=== PATIENT | female | born 1955 | race American Indian/Alaskan Native ===

== ENCOUNTER 2022-07-02 19:13 | Inpatient (IN) | payer MEDICARE ==
--- NOTE | 2022-07-02 22:22 | Emergency Department Report ---
- General Stated complaint: BRADYCARDIA/LETHARGY Time Seen by Provider: 07/02/22 22:11 - History of Present Illness Initial comments: 67-year female with past medical history of pseudotumor cerebri, thyroid cancer (status post thyroidectomy), stomach ulcers, GERD, CVA x3 with residual deficits status post tPA November 2021 presents to the hospital with increased dizziness. Patient states she woke up this morning "not feeling right". Patient took her oxycodone but continued to have generalized weakness requiring use of a walker instead of her cane. Around 6:20 PM she felt "dizzy" and unsteady and was falling to the right side therefore she called EMS at this time. Patient complains of chronic left shoulder and right arm pain which is unchanged. She has chronic right arm, right leg weakness, mild slurred speech, and memory problems which is unchanged. Patient takes Diamox for pseudotumor cerebri and does not currently undergo spinal fluid drainage. Patient also states she has had chronic nausea and vomiting for several months and recently had a stomach MRI as part of her outpatient work-up. Patient is typically treated at [facility] Her neurologist is Dr. Zuhair Jonas affiliated with [facility] Her pain management doctor Dr. Fox Her virtual classroom manager Dr. Farrell is affiliated with [facility] - Related Data Home Medications Medication Instructions Recorded Confirmed Last Taken Dexilant 60 mg PO DAILY 07/31/15 08/01/15 07/31/15 Diamox TAB 500 mg PO DAILY 07/31/15 08/01/15 08/01/15 Synthroid 88 mcg PO DAILY 07/31/15 08/01/15 07/31/15 Valium 2 mg PO DAILY 07/31/15 08/01/15 07/31/15 Vitamin B-100 Complex 1 tab PO DAILY 07/31/15 08/01/15 07/31/15 chlorproMAZINE 100 mg PO DAILY 07/31/15 08/01/15 07/31/15 Previous Rx's Medication Instructions Recorded Last Taken Type oxyCODONE /ACETAMINOPHEN [Percocet 1 tab PO Q6HR PRN #20 tablet 03/07/14 07/31/15 Rx 5/325 mg] Escitalopram Oxalate [Lexapro] 20 mg PO QDAY #30 tablet 07/31/14 07/31/15 Rx Sucralfate [Carafate] 1 gm PO Q6HR #600 ml 08/01/15 Unknown Rx Allergies Allergy/AdvReac Type Severity Reaction Status Date / Time sulfamethoxazole AdvReac Hives Verified 07/31/15 10:15 [From Bactrim] trimethoprim [From Bactrim] AdvReac Hives Verified 07/31/15 10:15 ED Review of Systems ROS: Stated complaint: BRADYCARDIA/LETHARGY Other details as noted in HPI ED Past Medical Hx - Past Medical History Hx CVA: Yes (Multiple strokes with residual deficit,) Hx GERD: Yes Hx Asthma: No Hx COPD: No Hx HIV: No Additional medical history: Fibromyalgia, Pseudo tumor cerebri, Thyroid CA, Stomach Ulcers - Surgical History Hx Appendectomy: Yes Hx Breast Surgery: Yes (RECONSTRUCTION RT BREAST;RT BREAST BX) Additional Surgical History: Leg Surgery x 3, Right Foot Surgery, Rt elbow surgery, thyroidectomy. - Social History Smoking Status: Former Smoker - Medications Home Medications: Home Medications Medication Instructions Recorded Confirmed Last Taken Type oxyCODONE /ACETAMINOPHEN [Percocet 1 tab PO Q6HR PRN #20 tablet 03/07/1408/0107/31/15 Rx 5/325 mg] Escitalopram Oxalate [Lexapro] 20 mg PO QDAY #30 tablet 07/31/14 08/01/15 07/31/15 Rx Dexilant 60 mg PO DAILY 07/31/15 08/01/15 07/31/15 History Diamox TAB 500 mg PO DAILY 07/31/15 08/01/15 08/01/15 History Synthroid 88 mcg PO DAILY 07/31/15 08/01/15 07/31/15 History Valium 2 mg PO DAILY 07/31/15 08/01/15 07/31/15 History Vitamin B-100 Complex 1 tab PO DAILY 07/31/15 08/01/15 07/31/15 History chlorproMAZINE 100 mg PO DAILY 07/31/15 08/01/15 07/31/15 History Sucralfate [Carafate] 1 gm PO Q6HR #600 ml 08/01/15 Unknown Rx - Assessment Assessment Interval: Baseline - Level of Consciousness 1a. Level of Consciousness: alert/keenly responsive - LOC Questions 1b. LOC Questions: answers both correctly - LOC Command 1c. LOC Commands: performs tasks correctly - Best Gaze 2. Best Gaze: normal - Visual 3. Visual: no visual loss - Facial Palsy 4. Facial Palsy: normal symmetrical movement - Motor Arm 5a. Motor Arm Left: no drift 5b. Motor Arm Right: drift - Motor Leg 6a. Motor Leg Left: no drift 6b. Motor Leg Right: drift - Limb Ataxia 7. Limb Ataxia: absent - Sensory 8. Sensory: normal - Best Language 9. Best Language: no aphasia - Dysarthria 10. Dysarthria: mild/moderate dysarthria - Extinction and Inattention 11. Extinction/Inattention: no abnormality - Scoring Total Score: 3 Stroke Severity: Minor Stroke ED Course Vital Signs 07/02/22 07/02/22 07/02/22 22:32 22:34 22:47 Temperature 97.8 F Pulse Rate 58 L 54 L Respiratory 18 11 L Rate Blood Pressure 113/55 Blood Pressure 113/55 [Left] O2 Sat by Pulse 97 89 Oximetry 07/02/22 07/02/22 07/02/22 23:01 23:15 23:31 Temperature Pulse Rate 68 57 L 56 L Respiratory 14 11 L Rate Blood Pressure 113/55 113/55 113/55 Blood Pressure [Left] O2 Sat by Pulse 95 100 97 Oximetry 07/02/22 07/03/22 07/03/22 23:45 00:01 00:15 Temperature Pulse Rate 47 L 52 L 53 L Respiratory 10 L 10 L Rate Blood Pressure 113/55 113/55 113/55 Blood Pressure [Left] O2 Sat by Pulse 98 98 97 Oximetry 07/03/22 07/03/22 00:31 01:24 Temperature Pulse Rate 56 L Respiratory Rate Blood Pressure 109/70 Blood Pressure [Left] O2 Sat by Pulse 98 97 Oximetry - Consultations Consultation #1: 07/02/22 22:22 Consultation with neurologist who will evaluate patient 07/03/22 00:49 Case to be discussed with neurologist. Alternative neurologist covering. Informed we are unable to obtain appropriate access with CT angiogram. Recommends MRA in addition to MRI previously recommended ED Medical Decision Making - Lab Data Result diagrams: 07/02/22 22:28 07/02/22 22:28 Lab Results 07/02/22 07/02/22 07/02/22 Range/Units 22:28 22:28 22:28 WBC 7.1 (4.5-11.0) K/mm3 RBC 4.37 (3.65-5.03) M/mm3 Hgb 12.3 (10.1-14.3) gm/dl Hct 36.5 (30.3-42.9) % MCV 83 (79-97) fl MCH 28 (28-32) pg MCHC 34 (30-34) % RDW 15.5 H (13.2-15.2) % Plt Count 223 (140-440) K/mm3 Lymph % (Auto) 29.7 (13.4-35.0) % [place] % (Auto) 7.0 (0.0-7.3) % Eos % (Auto) 1.1 (0.0-4.3) % Baso % (Auto) 0.8 (0.0-1.8) % Lymph # (Auto) 2.1 (1.2-5.4) K/mm3 [place] # (Auto) 0.5 (0.0-0.8) K/mm3 Eos # (Auto) 0.1 (0.0-0.4) K/mm3 Baso # (Auto) 0.1 (0.0-0.1) K/mm3 Seg Neutrophils % 61.4 (40.0-70.0) % Seg Neutrophils # 4.4 (1.8-7.7) K/mm3 PT 14.8 (12.2-14.9) Sec. INR 1.02 (0.87-1.13) APTT 28.9 (24.2-36.6) Sec. Thrombin Time 16.6 (15.1-19.6) Sec. Sodium 142 (137-145) mmol/L Potassium 3.6 (3.6-5.0) mmol/L Chloride 104.0 (98-107) mmol/L Carbon Dioxide 26 (22-30) mmol/L Anion Gap 16 mmol/L BUN 12 (7-17) mg/dL Creatinine 1.0 (0.6-1.2) mg/dL Estimated GFR > 60 ml/min BUN/Creatinine Ratio 12 % Glucose 93 (65-100) mg/dL Calcium 9.3 (8.4-10.2) mg/dL Total Bilirubin 0.80 (0.1-1.2) mg/dL AST 137 H (5-40) units/L ALT 86 H (7-56) units/L Alkaline Phosphatase 328 H (35-129) units/L Total Creatine Kinase 112 (30-135) units/L CK-MB (CK-2) 1.3 (0.0-4.0) ng/mL CK-MB (CK-2) Rel Index 1.1 (0-4) Troponin T < 0.010 (0.00-0.029) ng/mL Total Protein 6.9 (6.3-8.2) g/dL Albumin 3.8 L (3.9-5) g/dL Albumin/Globulin Ratio 1.2 % TSH (0.270-4.200) mlU/mL Free T4 (0.76-1.46) ng/dL Urine Color (Yellow) Urine Turbidity (Clear) Urine pH (5.0-7.0) Ur Specific [place] (1.003-1.030) Urine Protein (Negative) mg/dL Urine Glucose (UA) (Negative) mg/dL Urine Ketones (Negative) mg/dL Urine Blood (Negative) Urine Nitrite (Negative) Urine Bilirubin (Negative) Urine Urobilinogen (<2.0) mg/dL Ur Leukocyte Esterase (Negative) Urine WBC (Auto) (0.0-6.0) /HPF Urine RBC (Auto) (0.0-6.0) /HPF U Epithel Cells (Auto) (0-13.0) /HPF 07/02/22 07/03/22 Range/Units 22:28 00:31 WBC (4.5-11.0) K/mm3 RBC (3.65-5.03) M/mm3 Hgb (10.1-14.3) gm/dl Hct (30.3-42.9) % MCV (79-97) fl MCH (28-32) pg MCHC (30-34) % RDW (13.2-15.2) % Plt Count (140-440) K/mm3 Lymph % (Auto) (13.4-35.0) % [place] % (Auto) (0.0-7.3) % Eos % (Auto) (0.0-4.3) % Baso % (Auto) (0.0-1.8) % Lymph # (Auto) (1.2-5.4) K/mm3 [place] # (Auto) (0.0-0.8) K/mm3 Eos # (Auto) (0.0-0.4) K/mm3 Baso # (Auto) (0.0-0.1) K/mm3 Seg Neutrophils % (40.0-70.0) % Seg Neutrophils # (1.8-7.7) K/mm3 PT (12.2-14.9) Sec. INR (0.87-1.13) APTT (24.2-36.6) Sec. Thrombin Time (15.1-19.6) Sec. Sodium (137-145) mmol/L Potassium (3.6-5.0) mmol/L Chloride (98-107) mmol/L Carbon Dioxide (22-30) mmol/L Anion Gap mmol/L BUN (7-17) mg/dL Creatinine (0.6-1.2) mg/dL Estimated GFR ml/min BUN/Creatinine Ratio % Glucose (65-100) mg/dL Calcium (8.4-10.2) mg/dL Total Bilirubin (0.1-1.2) mg/dL AST (5-40) units/L ALT (7-56) units/L Alkaline Phosphatase (35-129) units/L Total Creatine Kinase (30-135) units/L CK-MB (CK-2) (0.0-4.0) ng/mL CK-MB (CK-2) Rel Index (0-4) Troponin T (0.00-0.029) ng/mL Total Protein (6.3-8.2) g/dL Albumin (3.9-5) g/dL Albumin/Globulin Ratio % TSH 0.178 L (0.270-4.200) mlU/mL Free T4 1.33 (0.76-1.46) ng/dL Urine Color Colorless (Yellow) Urine Turbidity Clear (Clear) Urine pH 7.0 (5.0-7.0) Ur Specific [place] 1.000 L (1.003-1.030) Urine Protein <15 mg/dl (Negative) mg/dL Urine Glucose (UA) Negative (Negative) mg/dL Urine Ketones Negative (Negative) mg/dL Urine Blood Negative (Negative) Urine Nitrite Negative (Negative) Urine Bilirubin Negative (Negative) Urine Urobilinogen 0.2 (<2.0) mg/dL Ur Leukocyte Esterase Negative (Negative) Urine WBC (Auto) 5.0 (0.0-6.0) /HPF Urine RBC (Auto) 1.0 (0.0-6.0) /HPF U Epithel Cells (Auto) 1.0 (0-13.0) /HPF - EKG Data -: EKG Interpreted by Nv EKG shows normal: sinus rhythm Rate: bradycardia (55) - Radiology Data Radiology results: report reviewed CT HEAD WITHOUT CONTRAST INDICATION / CLINICAL INFORMATION: Stroke symptoms. TECHNIQUE: All CT scans at this location are performed using CT dose reduction for ALARA by means of automated exposure control. COMPARISON: None available. FINDINGS: BRAIN PARENCHYMA: No acute intracranial hemorrhage. No evidence of recent infarct. No mass effect or midline shift. Chronic small vessel ischemic changes. Small area of encephalomalacia involving the right frontal lobe, likely related to remote infarct. Empty sella turcica. VENTRICULAR SYSTEM/EXTRA-AXIAL SPACES: Age-related cerebral atrophy. No extra- axial fluid collection. ORBITS: Normal as visualized. SKELETAL SYSTEM/SOFT TISSUES: Normal bones and soft tissues. PARANASAL SINUSES/MASTOID AIR CELLS: No significant abnormality. ADDITIONAL FINDINGS: None. IMPRESSION: No acute intracranial abnormality. - Medical Decision Making 57-year-old female presents to the hospital with unsteady gait and dizziness. Patient has history of multiple strokes with residual deficit and also takes medications which could be contributing to her current symptoms. ED work-up fairly unremarkable. Unable to obtain CT angiogram head and neck due to lack of appropriate IV access. MRI and MRA recommended by neurologist. Hospitalist to admit Critical Care Time: No Critical care attestation.: If time is entered above; I have spent that time in minutes in the direct care of this critically ill patient, excluding procedure time. ED Disposition Clinical Impression: Dizziness, Unsteady gait when walking, History of CVA with residual deficit, Low TSH level, Pseudotumor cerebri Disposition: 09 ADMITTED INPATIENT Is pt being admited?: Yes Condition: Stable
--- NOTE | 2022-07-02 22:39 | Cat Scan Report ---
CT HEAD WITHOUT CONTRAST INDICATION / CLINICAL INFORMATION: Stroke symptoms. TECHNIQUE: All CT scans at this location are performed using CT dose reduction for ALARA by means of automated exposure control. COMPARISON: None available. FINDINGS: BRAIN PARENCHYMA: No acute intracranial hemorrhage. No evidence of recent infarct. No mass effect or midline shift. Chronic small vessel ischemic changes. Small area of encephalomalacia involving the ri ght frontal lobe, likely related to remote infarct. Empty sella turcica. VENTRICULAR SYSTEM/EXTRA-AXIAL SPACES: Age-related cerebral atrophy. No extra-axial fluid collection. ORBITS: Normal as visualized. SKELETAL SYSTEM/SOFT TISSUES: Normal bones and soft tissues. PARANASAL SINUSES/MASTOID AIR CELLS: No significant abnormality. ADDITIONAL FINDINGS: None. IMPRESSION: No acute intracranial abnormality. Signer Name: Rom King MD Signed: 07/02/2022 10:35 PM Workstation Name: [id number]
[2022-07-02 22:46] LABS: Basophils # (Auto) 0.1 K/mm3 (0.0-0.1); Basophils % (Auto) 0.8 % (0.0-1.8); Eosinophils # (Auto) 0.1 K/mm3 (0.0-0.4); Eosinophils % (Auto) 1.1 % (0.0-4.3); Hematocrit 36.5 % (30.3-42.9); Hemoglobin 12.3 gm/dl (10.1-14.3); Lymphocytes # (Auto) 2.1 K/mm3 (1.2-5.4); Lymphocytes % (Auto) 29.7 % (13.4-35.0); Mean Corpuscular HGB Conc 34 % (30-34); Mean Corpuscular Volume 83 fl (79-97); Monocytes # (Auto) 0.5 K/mm3 (0.0-0.8); Platelet Count 223 K/mm3 (140-440); Red Blood Count 4.37 M/mm3 (3.65-5.03); Red Cell Distribution Width 15.5 % (13.2-15.2)
--- NOTE | 2022-07-02 23:00 | Emergency Department Report ---
Blank Doc - Documentation Documentation: [facility] Consult Note # Demographics Consult Type: Acute Stroke Level 2 (4.5-24 hrs) Patient Location: Emergency Room First Name: Cristina Last Name: Heri Date of : 1955 Age: 67 Gender: Female Facility: [facility] Time of Initial Page (Eastern Time): 07/02/2022, 22:14 Time of Return Call (Eastern Time): 07/02/2022, 22:14 # HPI History: 67 year old female with pseudotumor cerebri presents with symptoms of dizziness that started on waking up. PT also has hx of old stroke with right sided deficits. Patient states she was in [place] when her episode got worse, but didnt feel good while waking up. Last Known Normal: since waking up # Scores Level of Consciousness 1a: [0] = Alert; keenly responsive LOC Questions 1b: [0] = Answers both questions correctly LOC Commands 1c: [0] = Performs both tasks correctly Best Gaze 2: [0] = Normal Visual 3: [0] = No visual loss Facial Palsy 4: [0] = Normal symmetrical movements Motor Arm Left 5a: [0] = No drift Motor Arm Right 5b: [1] = Drift Motor Leg Left 6a: [1] = Drift Motor Leg Right 6b: [0] = No drift Limb Ataxia 7: [0] = Absent Sensory 8: [1] = [id number]-[id number] sensory loss Best Language 9: [0] = No aphasia Dysarthria 10: [0] = Normal Extinction and Inattention 11: [0] = No abnormality NIHSS Total: 3 # PMH-FH-SH Past Medical History: hypertension Social History: non-smoker non-drinker no drugs lives with family Medications: anticoagulant # Data Head CT: no bleed per radiologist read # Assessment Impression: given hx of multiple strokes in the past, and current on eliquis, cannot fully rule out stroke though symptoms less likely to be related to that. More likely to be metabolic vs. acute drop in BP due to 2 new BP medications. # Plan Thrombolytic/Intervention: NOT IV Thrombolysis or IA Intervention candidate Thrombolytic Exclusion: > 4.5 hours Intraarterial Exclusion: cta pending Blood Pressure Management: IV fluid bolus Target Blood Pressure: SBP < 140 SBP > 110 DBP < 105 Labs: CBC comprehensive metabolic panel hemoglobin A1c lipid panel troponin TSH urine drug screen ua Imaging: (urgency: STAT): CT Head without contrast CT Angiogram Head and CT Angiogram Neck Imaging: (urgency: routine): MRI Brain without contrast Diagnostic Test: echo with bubble study Medication: continue home meds Other: If patient has any neurological deterioration please call me back immediately permissive hypertension telemetry monitoring would not pursue stroke work-up if MRI is negative I have discussed my recommendations with the referring provider
[2022-07-02 23:03] LABS: INR 1.02 (0.87-1.13)
[2022-07-02 23:04] LABS: Partial Thromboplastin Time 28.9 Sec. (24.2-36.6); Thrombin Time 16.6 Sec. (15.1-19.6)
[2022-07-02 23:08] LABS: Creatine Kinase MB 1.3 ng/mL (0.0-4.0)
[2022-07-02 23:09] LABS: Alanine Aminotransferase 86 units/L (7-56); Albumin 3.8 g/dL (3.9-5); BUN/Creatinine Ratio 12; Blood Urea Nitrogen 12 mg/dL (7-17); Calcium 9.3 mg/dL (8.4-10.2); Hemolysis Index 4
[2022-07-02 23:19] LABS: Free T4 (Free Thyroxine) 1.33 ng/dL (0.76-1.46)
[2022-07-03 00:44] LABS: Bilirubin,Urine Negative (Negative); Blood,Urine Negative (Negative); Color,Urine Colorless (Yellow); Protein,Urine <15 mg/dL mg/dL (Negative); Urobilinogen,Urine 0.2 mg/dL (<2.0)
[2022-07-03 00:51] LABS: Amphetamine Screen,Urine PRESUMPTIVE NEGATIVE; Benzodiazepines Screen,Urine PRESUMPTIVE NEGATIVE; Cannabinoid Screen,Urine PRESUMPTIVE NEGATIVE; Cocaine Screen,Urine PRESUMPTIVE NEGATIVE; Methadone Screen,Urine PRESUMPTIVE NEGATIVE; Opiate Screen,Urine PRESUMPTIVE NEGATIVE
--- NOTE | 2022-07-03 00:52 | Consultation ---
History of Present Illness Consult date: 07/03/22 History of present illness: [facility] Consult Note # Demographics Consult Type: Follow-Up Phone Call Patient Location: Emergency Room First Name: Cristina Last Name: Heri Date of : 1955 Age: 67 Gender: Female Facility: [facility] Time of Initial Page (Eastern Time): 07/03/2022, 00:34 Time of Return Call (Eastern Time): 07/03/2022, 00:35 Phone Only Consult: Called ER Physician back as requested. It was reported that they could not obtain appropriate access for CTA & requested clarification. Reported dizziness, which was worse than her chronic baseline. Per documentation, NIHSS 3 with suspicion more for "metabolic vs. acute drop in BP due to 2 new BP medications," versus large-vessel occlusion. While CTA in the ER would be ideal, if unable to obtain vascular access for IV dye, MRA head & neck without gadolinium would be the next alternative. Would continue to monitor clinically, & additional recommendations as per the original consultation. # Plan Other: If patient has any neurological deterioration please call me back immediately I have discussed my recommendations with the referring provider Medications and Allergies Allergies Allergy/AdvReac Type Severity Reaction Status Date / Time sulfamethoxazole AdvReac Hives Verified 07/31/15 10:15 [From Bactrim] trimethoprim [From Bactrim] AdvReac Hives Verified 07/31/15 10:15 Home Medications Medication Instructions Recorded Confirmed Last Taken Type oxyCODONE /ACETAMINOPHEN [Percocet 1 tab PO Q6HR PRN #20 tablet 03/07/14 08/01/15 07/31/15 Rx 5/325 mg] Escitalopram Oxalate [Lexapro] 20 mg PO QDAY #30 tablet 07/31/14 08/01/15 07/31/15 Rx Dexilant 60 mg PO DAILY 07/31/15 08/01/15 07/31/15 History Diamox TAB 500 mg PO DAILY 07/31/15 08/01/15 08/01/15 History Synthroid 88 mcg PO DAILY 07/31/15 08/01/15 07/31/15 History Valium 2 mg PO DAILY 07/31/15 08/01/15 07/31/15 History Vitamin B-100 Complex 1 tab PO DAILY 07/31/15 08/01/15 07/31/15 History chlorproMAZINE 100 mg PO DAILY 07/31/15 08/01/15 07/31/15 History Sucralfate [Carafate] 1 gm PO Q6HR #600 ml 08/01/15 Unknown Rx Physical Examination - Vital Signs Vital Signs: Vital Signs Temp Pulse Resp BP Pulse Ox 97.8 F 58 L 18 113/55 97 07/02/22 22:32 07/02/22 22:32 07/02/22 22:32 07/02/22 22:32 07/02/22 22:32 Results - Laboratory Findings CBC and BMP: 07/02/22 22:28 07/02/22 22:28 Abnormal Lab Findings: Abnormal Labs 07/02/22 07/02/22 07/02/22 22:28 22:28 22:28 RDW 15.5 H AST 137 H ALT 86 H Alkaline Phosphatase 328 H Albumin 3.8 L TSH 0.178 L Ur Specific [place] 07/03/22 00:31 RDW AST ALT Alkaline Phosphatase Albumin TSH Ur Specific [place] 1.000 L
[2022-07-03] MEDS ORDERED: ONDANSETRON 4 MG/2 ML INJ IV PRN (01:44)
[2022-07-03] MEDS ORDERED: MORPHINE 4 MG/1 ML INJ IV PRN ×2 (01:44)
[2022-07-03] MEDS ORDERED: PROMETHAZINE 25 MG RECT SUPP PR PRN (01:44)
[2022-07-03] MEDS ORDERED: ACETAMINOPHEN 325 MG TAB PO PRN ×2 (01:44)
[2022-07-03] MEDS ORDERED: MORPHINE 2 MG/1 ML INJ IV PRN ×2 (01:44)
[2022-07-03] MEDS ORDERED: MAGNESIUM HYDROXIDE (MOM) ORAL LIQD UDC PO PRN ×2 (01:44)
--- NOTE | 2022-07-03 01:54 | History and Physical Report ---
History of Present Illness Date of examination: 07/03/22 Date of admission: 07/03/2022 Chief complaint: Right sided Weakness Unsteady gait History of present illness: 67 -[place] female with known history of thyroid cancer status post thyroidectomy, ulcers, pseudotumor cerebri, CVA x3 with residual right-sided deficit. Patient has also received tPA sometime in November 2021. She presents with complaints of dizziness and right-sided weakness today he has also been having unsteady gait. Patient indicates that each time she tries to get up she slides to the right side. He denies any falls. Denies any headache and denies any diaphoresis. Denies any blurry vision. Patient has received home a right-sided weakness but indicates that the weakness has gotten worse today. He still has some residual mild slurred speech which is unchanged. Patient denies any fever or chills, no chest pain or shortness of breath, no nausea or vomiting and no abdominal pain. She denies any sick contacts or recent travel. Denies any contact with anyone with COVID-19. Work-up in the emergency room today, CT of the head reveals no acute intracranial abnormality. Patient is being admitted for CVA work-up. Past History Past Medical History: GERD, stroke (Multiple CVAs), other (Fibromyalgia, Pseudo tumor cerebri, Thyroid CA, Stomach Ulcers) Past Surgical History: Other (RECONSTRUCTION RT BREAST;RT BREAST BX,Leg Surgery x 3, Right Foot Surgery, Rt elbow surgery, thyroidectomy.) Social history: smoking (Former smoker) Medications and Allergies Allergies Allergy/AdvReac Type Severity Reaction Status Date / Time sulfamethoxazole AdvReac Hives Verified 07/31/15 10:15 [From Bactrim] trimethoprim [From Bactrim] AdvReac Hives Verified 07/31/15 10:15 Home Medications Medication Instructions Recorded Confirmed Last Taken Type oxyCODONE /ACETAMINOPHEN [Percocet 1 tab PO Q6HR PRN #20 tablet 03/07/14 08/01/15 07/31/15 Rx 5/325 mg] Escitalopram Oxalate [Lexapro] 20 mg PO QDAY #30 tablet 07/31/14 08/01/15 07/31/15 Rx Dexilant 60 mg PO DAILY 07/31/15 08/01/15 07/31/15 History Diamox TAB 500 mg PO DAILY 07/31/15 08/01/15 08/01/15 History Synthroid 88 mcg PO DAILY 07/31/15 08/01/15 07/31/15 History Valium 2 mg PO DAILY 07/31/15 08/01/15 07/31/15 History Vitamin B-100 Complex 1 tab PO DAILY 07/31/15 08/01/15 07/31/15 History chlorproMAZINE 100 mg PO DAILY 07/31/15 08/01/15 07/31/15 History Sucralfate [Carafate] 1 gm PO Q6HR #600 ml 08/01/15 Unknown Rx Review of Systems Constitutional: no fever, no chills Ears, nose, mouth and throat: no nasal congestion, no sore throat Cardiovascular: no chest pain, no palpitations Respiratory: no cough, no shortness of breath Gastrointestinal: no abdominal pain, no nausea, no vomiting, no diarrhea Genitourinary Female: no pelvic pain, no flank pain, no dysuria, no hematuria Musculoskeletal: no neck pain, no low back pain Integumentary: no rash, no pruritis Neurological: weakness (Right-sided), gait dysfunction, no headaches, no confusion Psychiatric: no anxiety, no depression Endocrine: no polyphagia, no polydipsia, no polyuria, no nocturia Exam - Constitutional Vitals: Temp Pulse Resp BP Pulse Ox 97.8 F 56 L 10 L 109/70 97 07/02/22 22:32 07/03/22 00:31 07/03/22 00:15 07/03/22 00:31 07/03/22 01:24 General appearance: Present: no acute distress, well-nourished - EENT Eyes: Present: PERRL, EOM intact. Absent: scleral icterus ENT: hearing intact, clear oral mucosa, dentition normal - Neck Neck: Present: supple, normal ROM - Respiratory Respiratory effort: normal Respiratory: bilateral: CTA - Cardiovascular Rhythm: regular Heart Sounds: Present: S1 & S2. Absent: gallop, systolic murmur, diastolic murmur, rub, click - Extremities Extremities: no ischemia, pulses intact, pulses symmetrical, No edema, normal temperature, normal color, Full ROM Peripheral Pulses: within normal limits - Abdominal General gastrointestinal: Present: soft, non-tender, non-distended, normal bowel sounds. Absent: mass - Integumentary Integumentary: Present: clear, warm, dry, normal turgor. Absent: rash - Musculoskeletal Musculoskeletal: right sided weakness - Psychiatric Psychiatric: appropriate mood/affect, intact judgment & insight, memory intact, cooperative - Neurologic Neurologic: CNII-XII intact, moves all extremities, other (Right-sided weakness, mild slurred speech) HEART Score - HEART Score Troponin: Troponin T < 0.010 ng/mL (0.00-0.029) 07/02/22 22: Results - Labs CBC & Chem 7: 07/02/22 22:28 07/02/22 22: Labs: Abnormal lab results 07/02/22 07/02/22 07/02/22 Range/Units 22: 22: 22: RDW 15.5 H (13.2-15.2) % AST 137 H (5-40) units/L ALT 86 H (7-56) units/L Alkaline Phosphatase 328 H (35-129) units/L Albumin 3.8 L (3.9-5) g/dL TSH 0.178 L (0.270-4.200) mlU/mL Ur Specific [place] (1.003-1.030) 07/03/22 Range/Units 00:31 RDW (13.2-15.2) % AST (5-40) units/L ALT (7-56) units/L Alkaline Phosphatase (35-129) units/L Albumin (3.9-5) g/dL TSH (0.270-4.200) mlU/mL Ur Specific [place] 1.000 L (1.003-1.030) Assessment and Plan Assessment: 1. Right-sided weakness 2. History of CVAs. 3. Hypothyroidism 4. History of GERD 5. History of pseudotumor cerebri Plan: 1. Patient admitted and placed on telemetry. We will monitor mental status. 2. Patient was scheduled for carotid Doppler and MRI of the brain. 3. Consult placed to neurology for evaluation and recommendations. 4. Patient commenced on aspirin and statin. 5. We will resume routine home medications. DVT prophylaxis: Subcutaneous heparin CODE STATUS: Full code
[2022-07-03] MEDS: HEPARIN 5,000 UNIT/1 ML VIAL SUB-Q SCH ×3 (05:58→21:05)
[2022-07-03] MEDS: ASPIRIN 325 MG TAB PO SCH (10:45)
[2022-07-03] MEDS ORDERED: SYNTHROID 88 MCG PO SCH (11:00)
[2022-07-03] MEDS ORDERED: DIAMOX PO SCH (11:00)
--- NOTE | 2022-07-03 11:02 | Event Note ---
Date: 07/03/22 Patient seen at bedside. She has history of strokes in the past and describes events suspicious for recrudescence versus new CVA versus TIA. Patient reports unsteadiness on her feet. She is currently awaiting MRI, carotid Doppler and echocardiogram. She is unable to provide list of her current medications, but will have her to bring a list today. We will continue with current care plan as stated in H&P.
[2022-07-03] MEDS ORDERED: HYDROmorphone 0.5 MG/0.5 ML INJ IV PRN (11:10)
--- NOTE | 2022-07-03 11:38 | XRay Report ---
Single frontal image of the left shoulder INDICATION: shoulder pain. COMPARISON: None available. IMPRESSION: No acute osseous abnormality. Normal alignment. Mild acromioclavicular degenerative art hrosis. Soft tissues are unremarkable. Signer Name: Omari Piper MD Signed: 07/03/2022 11:33 AM Workstation Name: [id number]
[2022-07-03] MEDS: oxyCODONE /ACETAMINOPHEN 5-325MG TAB PO PRN (21:05)
[2022-07-04] MEDS: ONDANSETRON 4 MG/2 ML INJ IV PRN ×2 (00:11→13:41)
[2022-07-04] MEDS: LEVOTHYROXINE 88 MCG TAB PO SCH (05:28)
[2022-07-04] MEDS: HEPARIN 5,000 UNIT/1 ML VIAL SUB-Q SCH ×3 (05:29→21:58)
[2022-07-04 06:20] LABS: Hematocrit 36.2 % (30.3-42.9); Hemoglobin 11.8 gm/dl (10.1-14.3); Mean Corpuscular HGB Conc 33 % (30-34); Mean Corpuscular Volume 84 fl (79-97); Platelet Count 216 K/mm3 (140-440); Red Blood Count 4.33 M/mm3 (3.65-5.03); Red Cell Distribution Width 15.5 % (13.2-15.2)
[2022-07-04 06:47] LABS: BUN/Creatinine Ratio 12; Blood Urea Nitrogen 12 mg/dL (7-17); Calcium 8.7 mg/dL (8.4-10.2); Chol/HDL Ratio 2.62 %; HDL Cholesterol 51 mg/dL (40-59); Hemolysis Index 100; LDL Cholesterol,Direct 67 mg/dL (50-130)
[2022-07-04 07:20] LABS: Total Cells Counted 100
[2022-07-04 07:21] LABS: Platelet Estimate Consistent w Auto
--- NOTE | 2022-07-04 08:30 | Progress Note ---
Assessment and Plan Assessment and plan: #Acute CVA vs TIA vs recrudence of previous strokes #History of CVA with residual right-sided weakness -CT of the head negative for acute findings -Echocardiogram: LVEF 60%, no PFO noted -MRI of brain and carotid Doppler pending -Neurology consulted in ED, recommendations noted -continue ASA + statin -PT evaluation: HH w/ PT, rolling walker #History of hypertension -Patient takes hydrochlorothiazide, bisoprolol and amlodipine at home -We will currently hold due to patient having borderline low blood pressures #Hypothyroidism -Continue levothyroxine at home dose #History of GERD -supportive care #History of pseudotumor cerebri -Continue acetazolamide #Advanced care planning -Disease education conducted, care plan discussed, diagnoses discussed, prognosis discussed, and patient acknowledges understanding with care plan -Time: +30 min History Interval history: No acute events overnight. Patient reports continued left-sided shoulder pain improved with as needed pain meds. We discussed current care plan, patient agreeable. She has no other complaints at this time. Hospitalist Physical - Physical exam Narrative exam: GENERAL: Well-developed well-nourished. In no acute distress. HEENT: Normocephalic. Atraumatic. NECK: Supple. CHEST/LUNGS: CTAB on room air HEART/CARDIOVASCULAR: RRR. No murmur, rubs or gallops appreciated. ABDOMEN: +BS. NT/ND. SKIN: No rashes noted. NEURO: R sided upper and lower extremity weakness. Sensation in tact. Normal ROM and strength in L upper and lower extremities. Follows all commands. MUSCULOSKELETAL: No joint effusion EXTREMITIES: No cyanosis, clubbing or edema. PSYCH: Cooperative. - Constitutional Vitals: Temp Pulse Resp BP Pulse Ox 98.4 F 57 L 18 109/51 95 07/04/22 07:39 07/04/22 07:39 07/04/22 07:39 07/04/22 07:39 07/04/22 07:39 General appearance: Present: no acute distress, well-nourished HEART Score - HEART Score Troponin: Troponin T < 0.010 ng/mL (0.00-0.029) 07/02/22 22:28 Results - Labs CBC & Chem 7: 07/04/22 05:20 07/04/22 05:20 Labs: Laboratory Last Values WBC 4.4 K/mm3 (4.5-11.0) L 07/04/22 05:20 RBC 4.33 M/mm3 (3.65-5.03) 07/04/22 05:20 Hgb 11.8 gm/dl (10.1-14.3) 07/04/22 05:20 Hct 36.2 % (30.3-42.9) 07/04/22 05:20 MCV 84 fl (79-97) 07/04/22 05:20 MCH 27 pg (28-32) L 07/04/22 05:20 MCHC 33 % (30-34) 07/04/22 05:20 RDW 15.5 % (13.2-15.2) H 07/04/22 05:20 Plt Count 216 K/mm3 (140-440) 07/04/22 05:20 Lymph % (Auto) 29.7 % (13.4-35.0) 07/02/22 22:28 [place] % (Auto) 7.0 % (0.0-7.3) 07/02/22 22:28 Eos % (Auto) 1.1 % (0.0-4.3) 07/02/22 22:28 Baso % (Auto) 0.8 % (0.0-1.8) 07/02/22 22:28 Lymph # (Auto) 2.1 K/mm3 (1.2-5.4) 07/02/22 22:28 [place] # (Auto) 0.5 K/mm3 (0.0-0.8) 07/02/22 22:28 Eos # (Auto) 0.1 K/mm3 (0.0-0.4) 07/02/22 22:28 Baso # (Auto) 0.1 K/mm3 (0.0-0.1) 07/02/22 22:28 Add Manual Diff Complete 07/04/22 05:20 Total Counted 100 07/04/22 05:20 Seg Neutrophils % Manager Civil 07/04/22 05:20 Seg Neuts % (Manual) 41.0 % (40.0-70.0) 07/04/22 05:20 Band Neutrophils % 0 % 07/04/22 05:20 Lymphocytes % (Manual) 52.0 % (13.4-35.0) H 07/04/22 05:20 Reactive Lymphs % (Man) 0 % 07/04/22 05:20 Monocytes % (Manual) 5.0 % (0.0-7.3) 07/04/22 05:20 Eosinophils % (Manual) 1.0 % (0.0-4.3) 07/04/22 05:20 Basophils % (Manual) 1.0 % (0.0-1.8) 07/04/22 05:20 Metamyelocytes % 0 % 07/04/22 05:20 Myelocytes % 0 % 07/04/22 05:20 Promyelocytes % 0 % 07/04/22 05:20 Blast Cells % 0 % 07/04/22 05:20 Nucleated RBC % Not Reportable 07/04/22 05:20 Seg Neutrophils # 4.4 K/mm3 (1.8-7.7) 07/02/22 22:28 Seg Neutrophils # Man 1.8 K/mm3 (1.8-7.7) 07/04/22 05:20 Band Neutrophils # 0.0 K/mm3 07/04/22 05:20 Lymphocytes # (Manual) 2.3 K/mm3 (1.2-5.4) 07/04/22 05:20 Abs React Lymphs (Man) 0.0 K/mm3 07/04/22 05:20 Monocytes # (Manual) 0.2 K/mm3 (0.0-0.8) 07/04/22 05:20 Eosinophils # (Manual) 0.0 K/mm3 (0.0-0.4) 07/04/22 05:20 Basophils # (Manual) 0.0 K/mm3 (0.0-0.1) 07/04/22 05:20 Metamyelocytes # 0.0 K/mm3 07/04/22 05:20 Myelocytes # 0.0 K/mm3 07/04/22 05:20 Promyelocytes # 0.0 K/mm3 07/04/22 05:20 Blast Cells # 0.0 K/mm3 07/04/22 05:20 WBC Morphology Not Reportable 07/04/22 05:20 Hypersegmented Neuts Not Reportable 07/04/22 05:20 Hyposegmented Neuts Not Reportable 07/04/22 05:20 Hypogranular Neuts Not Reportable 07/04/22 05:20 Smudge Cells Not Reportable 07/04/22 05:20 Toxic Granulation Not Reportable 07/04/22 05:20 Toxic Vacuolation Not Reportable 07/04/22 05:20 Dohle Bodies Not Reportable 07/04/22 05:20 Pelger-Huet Anomaly Not Reportable 07/04/22 05:20 Nette Rods Not Reportable 07/04/22 05:20 Platelet Estimate Consistent w auto 07/04/22 05:20 Clumped Platelets Not Reportable 07/04/22 05:20 Plt Clumps, EDTA Not Reportable 07/04/22 05:20 Large Platelets Not Reportable 07/04/22 05:20 Giant Platelets Not Reportable 07/04/22 05:20 Platelet Satelliting Not Reportable 07/04/22 05:20 Plt Morphology Comment Not Reportable 07/04/22 05:20 RBC Morphology Not Reportable 07/04/22 05:20 Dimorphic RBCs Not Reportable 07/04/22 05:20 Polychromasia Not Reportable 07/04/22 05:20 Hypochromasia Not Reportable 07/04/22 05:20 Poikilocytosis Not Reportable 07/04/22 05:20 Anisocytosis Not Reportable 07/04/22 05:20 Microcytosis Not Reportable 07/04/22 05:20 Macrocytosis Not Reportable 07/04/22 05:20 Spherocytes Not Reportable 07/04/22 05:20 Pappenheimer Bodies Not Reportable 07/04/22 05:20 Sickle Cells Not Reportable 07/04/22 05:20 Target Cells Not Reportable 07/04/22 05:20 Tear Drop Cells Not Reportable 07/04/22 05:20 Ovalocytes Not Reportable 07/04/22 05:20 Helmet Cells Not Reportable 07/04/22 05:20 Mahoney-Icard Bodies Not Reportable 07/04/22 05:20 [place] Rings Not Reportable 07/04/22 05:20 Vicenta Cells Not Reportable 07/04/22 05:20 Bite Cells Not Reportable 07/04/22 05:20 Crenated Cell Not Reportable 07/04/22 05:20 Elliptocytes Not Reportable 07/04/22 05:20 Acanthocytes (Spur) Not Reportable 07/04/22 05:20 Rouleaux Not Reportable 07/04/22 05:20 Hemoglobin C Crystals Not Reportable 07/04/22 05:20 Schistocytes Not Reportable 07/04/22 05:20 Malaria parasites Not Reportable 07/04/22 05:20 Enrrique Bodies Not Reportable 07/04/22 05:20 Hem Pathologist Commnt No 07/04/22 05:20 PT 14.8 Sec. (12.2-14.9) 07/02/22 22:28 INR 1.02 (0.87-1.13) 07/02/22 22:28 APTT 28.9 Sec. (24.2-36.6) 07/02/22 22:28 Thrombin Time 16.6 Sec. (15.1-19.6) 07/02/22 22:28 Sodium 140 mmol/L (137-145) 07/04/22 05:20 Potassium 3.8 mmol/L (3.6-5.0) 07/04/22 05:20 Chloride 106.6 mmol/L (98-107) 07/04/22 05:20 Carbon Dioxide 24 mmol/L (22-30) 07/04/22 05:20 Anion Gap 13 mmol/L 07/04/22 05:20 BUN 12 mg/dL (7-17) 07/04/22 05:20 Creatinine 1.0 mg/dL (0.6-1.2) 07/04/22 05:20 Estimated GFR > 60 ml/min 07/04/22 05:20 BUN/Creatinine Ratio 12 % 07/04/22 05:20 Glucose 81 mg/dL (65-100) 07/04/22 05:20 Hemoglobin A1c 6.0 % (4-6) 07/04/22 05:20 Calcium 8.7 mg/dL (8.4-10.2) 07/04/22 05:20 Total Bilirubin 0.80 mg/dL (0.1-1.2) 07/02/22 22:28 AST 137 units/L (5-40) H 07/02/22 22:28 ALT 86 units/L (7-56) H 07/02/22 22:28 Alkaline Phosphatase 328 units/L (35-129) H 07/02/22 22:28 Total Creatine Kinase 112 units/L (30-135) 07/02/22 22:28 CK-MB (CK-2) 1.3 ng/mL (0.0-4.0) 07/02/22 22: CK-MB (CK-2) Rel Index 1.1 (0-4) 07/02/22 22: Troponin T < 0.010 ng/mL (0.00-0.029) 07/02/22 22:28 Total Protein 6.9 g/dL (6.3-8.2) 07/02/22 22: Albumin 3.8 g/dL (3.9-5) L 07/02/22 22: Albumin/Globulin Ratio 1.2 % 07/02/22 22: Triglycerides 78 mg/dL (2-149) 07/04/22 05:20 Cholesterol 134 mg/dL (50-199) 07/04/22 05:20 LDL Cholesterol Direct 67 mg/dL (50-130) 07/04/22 05:20 HDL Cholesterol 51 mg/dL (40-59) 07/04/22 05:20 Cholesterol/HDL Ratio 2.62 % 07/04/22 05:20 TSH 0.178 mlU/mL (0.270-4.200) L 07/02/22 22: Free T4 1.33 ng/dL (0.76-1.46) 07/02/22 22:28 Urine Color Colorless (Yellow) 07/03/22 00:31 Urine Turbidity Clear (Clear) 07/03/22 00:31 Urine pH 7.0 (5.0-7.0) 07/03/22 00:31 Ur Specific [place] 1.000 (1.003-1.030) L 07/03/22 00: Urine Protein <15 mg/dl mg/dL (Negative) 07/03/22 00: Urine Glucose (UA) Negative mg/dL (Negative) 07/03/22 00: Urine Ketones Negative mg/dL (Negative) 07/03/22 00: Urine Blood Negative (Negative) 07/03/22 00: Urine Nitrite Negative (Negative) 07/03/22 00: Urine Bilirubin Negative (Negative) 07/03/22 00: Urine Urobilinogen 0.2 mg/dL (<2.0) 07/03/22 00:31 Ur Leukocyte Esterase Negative (Negative) 07/03/22 00:31 Urine WBC (Auto) 5.0 /HPF (0.0-6.0) 07/03/22 00:31 Urine RBC (Auto) 1.0 /HPF (0.0-6.0) 07/03/22 00:31 U Epithel Cells (Auto) 1.0 /HPF (0-13.0) 07/03/22 00:31 Urine Opiates Screen Presumptive negative 07/03/22 00:31 Urine Methadone Screen Presumptive negative 07/03/22 00:31 Ur Barbiturates Screen Presumptive negative 07/03/22 00:31 Ur Phencyclidine Scrn Presumptive negative 07/03/22 00:31 Ur Amphetamines Screen Presumptive negative 07/03/22 00:31 U Benzodiazepines Scrn Presumptive negative 07/03/22 00:31 Urine Cocaine Screen Presumptive negative 07/03/22 00:31 U Marijuana (THC) Screen Presumptive negative 07/03/22 00:31 Drugs of Abuse Note Disclamer 07/03/22 00:31 French/IV: Voiding Method Bedside Commode Active Medications - Current Medications Current Medications: Generic Name Dose Route Start Last Admin Trade Name Freq PRN Reason Stop Dose Admin Acetaminophen 650 mg 07/03/22 01:44 Acetaminophen 325 Mg Tab PO Q4H PRN Pain MILD(1-3)/Fever >100.5/VILLEDA Acetazolamide 500 mg 07/04/22 10:00 Acetazolamide 250 Mg Tab PO DAILY [facility] Aspirin 325 mg 07/03/22 10:00 07/03/22 10:45 Aspirin 325 Mg Tab PO Not Given QDAY [facility] Atorvastatin Calcium 40 mg 07/03/22 22:00 Atorvastatin 40 Mg Tab PO QHS [facility] Bisacodyl 10 mg 07/03/22 01:44 Bisacodyl 10 Mg Rect Supp [place] QDAY PRN Constipation Escitalopram Oxalate 20 mg 07/04/22 10:00 Escitalopram 10 Mg Tab PO DAILY [facility] Heparin Sodium (Porcine) 5,000 unit 07/03/22 06:00 07/04/22 05:29 Heparin 5,000 Unit/1 Ml Vial SUB-Q 5,000 unit Q8HR [facility] Administration Hydromorphone HCl 0.5 mg 07/03/22 11:10 Hydromorphone 0.5 Mg/0.5 Ml Inj IV Q4H PRN Pain , Severe (7-10) Levothyroxine Sodium 88 mcg 07/04/22 06:00 07/04/22 05:28 Levothyroxine 88 Mcg Tab PO 88 mcg DAILY@0600 TEODORA Administration Magnesium Hydroxide 30 ml 07/03/22 01:44 Magnesium Hydroxide (Mom) Oral Liqd Udc PO Q4H PRN Constipation Metoclopramide HCl 10 mg 07/03/22 01:44 Metoclopramide 10 Mg Tab PO Q6H PRN Nausea And Vomiting Miscellaneous Medication 1 drop 07/04/22 10:00 Timolol OU BID TEODORA Ondansetron HCl 4 mg 07/03/22 01:44 07/04/22 00:11 Ondansetron 4 Mg/2 Ml Inj IV 4 mg Q8H PRN Administration Nausea And Vomiting Oxycodone/Acetaminophen 2 tab 07/03/22 11:09 07/03/22 21:05 Oxycodone /Acetaminophen 5-325mg Tab PO 2 tab Q6H PRN Administration Pain , Severe (7-10) Promethazine HCl 25 mg 07/03/22 01:44 Promethazine 25 Mg Rect Supp [place] Q6H PRN Nausea And Vomiting Sodium Chloride 10 ml 07/03/22 10:00 07/03/22 21:06 Sodium Chloride 0.9% 10 Ml Flush Syringe IV 10 ml BID TEODORA Administration Sodium Chloride 10 ml 07/03/22 01:44 Sodium Chloride 0.9% 10 Ml Flush Syringe IV PRN PRN LINE FLUSH Nutrition/Malnutrition Assess - Dietary Evaluation Nutrition/Malnutrition Findings: Nutrition Notes Start: 07/03/22 12:17 Freq: Status: Active Protocol: Document 07/03/22 12:17 TW (Rec: 07/03/22 12:20 TW [email or web address]) Nutrition Notes Need for Assessment generated from: MD Order,Education Initial or Follow up Brief Note Other Pertinent Diagnosis CVA Current Diet Mechanical Soft Subjective/Other Information RD consulted for diet education. Diet education not appropriate at this time. Speech therapist cleared pt for PO diet. Minimum of two criteria No Nutrition Intervention Follow-Up By: 07/08/22 Additional Comments F/U for intakes
[2022-07-04] MEDS: ESCITALOPRAM 10 MG TAB PO SCH (09:23)
[2022-07-04] MEDS: oxyCODONE /ACETAMINOPHEN 5-325MG TAB PO PRN (09:25)
[2022-07-04] MEDS: ASPIRIN 325 MG TAB PO SCH ×2 (09:26→09:43)
[2022-07-04] MEDS: acetaZOLAMIDE 250 MG TAB PO SCH (09:26)
[2022-07-04] MEDS ORDERED: NON-FORMULARY EACH (Escitalopram Oxalate [Lexapro] 20 MG Tablet) PO SCH (10:00)
[2022-07-04] MEDS: TIMOLOL OP SCH ×2 (21:58→21:59)
[2022-07-05] MEDS: LEVOTHYROXINE 88 MCG TAB PO SCH (05:52)
[2022-07-05] MEDS: HEPARIN 5,000 UNIT/1 ML VIAL SUB-Q SCH (05:52)
--- NOTE | 2022-07-05 08:32 | Vascular Lab Report ---
In DUPLEX DOPPLER ULTRASOUND CAROTID, BILATERAL INDICATION / CLINICAL INFORMATION: stroke. COMPARISON: None available. FINDINGS: RIGHT CAROTID: - PLAQUE ESTIMATE (%): < 50% - CCA velocity: 113 cm/sec. - ICA peak systolic velocity: 111 cm/sec. - ICA/CCA PSV Ratio: 1.0 Right Vertebral Artery: Antegrade flow. LEFT CAROTID: - PLAQUE ESTIMATE: < 50% - CCA velocity: 105 cm/sec. - ICA peak systolic velocity: 102 cm/sec. - ICA/CCA PSV Ratio: 1.0 Left Vertebral Artery: Antegrade flow. IMPRESSION: 1. Right Internal Carotid Artery: Less than 50% diameter stenosis. 2. Left Internal Carotid Artery: Less than 50% diameter stenosis. Velocity criteria are extrapolated from diameter data as defined by the Society of Radiologists in [place] [facility] Consensus Conference, Radiology 2003; 229;340-346. NO STENOSIS (NORMAL) * Plaque = none; ICA PSV < 125 cm/sec; ICA/CCA PSV Ratio < 2.0 <50% STENOSIS * Plaque < 50%; ICA PSV < 125 cm/sec; ICA/CCA PSV Ratio < 2.0 50-69% STENOSIS * Plaque > 50%; ICA PSV = 125-230 cm/sec; ICA/CCA PSV Ratio = 2.0-4.0 >70% BUT <100% STENOSIS * Plaque > 50%; ICA PSV > 230 cm/sec; ICA/CCA PSV Ratio > 4.0 NEAR OCCLUSION * Plaque = visible lumen; ICA PSV = high/low/none; ICA/CCA PSV Ratio = variable TOTAL OCCLUSION * Plaque = no lumen; ICA PSV = none; ICA/CCA PSV Ratio = N/A Signer Name: Zachary Tapia MD Signed: 07/05/2022 8:28 AM Workstation Name: [id number]
--- NOTE | 2022-07-05 10:11 | Electrocardiograph Report ---
[facility] Test Date: 2022-07-02 Test Time: 22:49:57 Pat Name: ALFREDA SKY Department: Room: A472 1 Gender: F Nurses Superintendent: NURSE : 1955 Requested By: SARINA GEE Order Number: [id number] Reading MD: Rosendo Coronado Measurements Intervals [place] Rate: 55 P: 33 WA: 164 QRS: -7 QRSD: 84 T: -44 QT: 470 QTc: 451 Interpretive Statements Sinus bradycardia Nonspecific T abnormalities, inferior leads No previous ECG available for comparison Electronically Signed On 07-05-2022 10:11:12 EDT by Rosendo Coronado
--- NOTE | 2022-07-05 10:35 | Magnetic Resonance Report ---
MRI BRAIN WITHOUT CONTRAST INDICATION / CLINICAL INFORMATION: stroke. TECHNIQUE: Multiplanar, multisequence MR images of the brain were obtained. COMPARISON: Head CT on 07/02/2022 FINDINGS: Exam mildly degraded by motion artifact. BRAIN / INTRACRANIAL CONTENTS: No acute ischemia, acute hemorrhage, mass effect, midline shift, or hy drocephalus. Small chronic infarct in the right middle frontal gyrus. Mild cerebral atrophy. Mild ch ronic small vessel ischemic change of the cerebral white matter. There is expansion of the sella with flattening of the superior margin of the pituitary gland. CRANIOCERVICAL JUNCTION: No significant abnormality. VASCULAR FLOW-VOIDS: No significant abnormality. ORBITS: No significant abnormality of visualized orbits. SINUSES / MASTOIDS: No significant abnormality of visualized sinuses and mastoid air cells. ADDITIONAL FINDINGS: None. IMPRESSION: 1. No acute findings. 2. Mild chronic changes as described above. 3. Partially empty sella appearance can be associated with idiopathic intracranial hypertension. Signer Name: Yan Sosa MD Signed: 07/05/2022 10:31 AM Workstation Name: [email or web address]
--- NOTE | 2022-07-05 11:31 | Discharge Summary ---
Providers - Providers Date of Admission: 07/03/22 01:44 Date of discharge: 07/05/22 Attending physician: MADAY GIRON MD 07/03/22 01:44 Consult to Dietitian/Nutrition [CONS] Routine Physician Instructions: Reason For Exam: Reason for Consult: Nutrition Recommendations Reason for Consult: Diet education Consult to Physician [CONS] Routine Comment: Consulting Provider: EZEQUIEL REYNA Physician Instructions: Reason For Exam: Right sided weakness.? Possible CVA Occupational Therapy Evaluate and Treat [CONS] Routine Comment: Reason For Exam: Neuro deficits Physical Therapy Evaluation and Treat [CONS] Routine Comment: Reason For Exam: Neuro deficits 07/03/22 03:20 Speech Therapy Evaluation and Treat [CONS] Stat Reason For Exam: Failed swallow screen Primary care physician: SHAYLEE LEUNG Hospitalization Reason for admission: ACS rule out Condition: Stable Hospital course: Patient is a 67-year-old female with history of thyroid cancer status post thyroidectomy, pseudotumor cerebri and CVA x3 with residual right-sided deficit. She presented with unsteady gait and right-sided weakness. She was admitted for CVA work-up. Patient was started on aspirin and statin. Patient opted to not take aspirin due to it being discontinued by her primary care provider. CT head showed no acute abnormality. Echocardiogram showed normal ejection fraction and and no PFO. Carotid Doppler showed less than 50% stenosis bilaterally. MRI showed no acute findings. Patient was examined by physical therapy recommended home health with physical therapy. Once stable, she was discharged home with her . Disposition: 01 HOME / SELF CARE / HOMELESS Final Discharge Diagnosis (Prints w/discharge instructions): Acute CVA ruled out. Probable TIA versus recrudescence of stroke secondary to hypotension. History of hypertension. Hypothyroidism. History of GERD. History of stated tumor cerebri Time spent for discharge: 30 minutes Core Measure Documentation - Palliative Care Palliative Care/ Comfort Measures: Not Applicable - Core Measures Any of the following diagnoses?: history only Exam - Physical Exam Narrative exam: GENERAL: Well-developed well-nourished. In no acute distress. HEENT: Normocephalic. Atraumatic. NECK: Supple. CHEST/LUNGS: CTAB on room air HEART/CARDIOVASCULAR: RRR. No murmur, rubs or gallops appreciated. ABDOMEN: +BS. NT/ND. SKIN: No rashes noted. NEURO: R sided upper and lower extremity weakness. Sensation in tact. Normal ROM and strength in L upper and lower extremities. Follows all commands. MUSCULOSKELETAL: No joint effusion EXTREMITIES: No cyanosis, clubbing or edema. PSYCH: Cooperative. - Constitutional Vitals: Temp Pulse Resp BP Pulse Ox 97.9 F 53 L 12 92/46 98 07/05/22 07:34 07/05/22 07:34 07/05/22 03:50 07/05/22 07:34 07/05/22 07:47 Plan Care Plan Goals: Please follow-up with your primary care provider. You can restart apixaban at this time. You can discuss with your primary care provider if you would like to restart aspirin. We have noticed that your blood pressures have been lower side. Please hold any blood pressure medications at this time until you follow-up with your primary care provider. Your imaging findings were not suggestive of a stroke. We cannot however rule out you having a TIA. Please have your primary care provider to refer you to a stroke neurologist. Follow up with: SHAYLEE LEUNG MD [Primary Care Provider] - 7 Days
[2022-07-05] MEDS: oxyCODONE /ACETAMINOPHEN 5-325MG TAB PO PRN (11:46)
[2022-07-05] MEDS: METOCLOPRAMIDE 10 MG TAB PO PRN ×2 (11:46→11:55)
[2022-07-05] MEDS: ASPIRIN 325 MG TAB PO SCH ×2 (11:47→11:57)
[2022-07-05] MEDS: ESCITALOPRAM 10 MG TAB PO SCH (11:47)
[2022-07-05] MEDS: acetaZOLAMIDE 250 MG TAB PO SCH (11:48)
[2022-07-05] MEDS: TIMOLOL OP SCH (11:53)
[2022-07-05 12:05] VITALS: BP 120/49
== END 2022-07-05 14:00 | disposition home health service (06) | DRG 69 ==
LOC: ED 19:13 → 4A 07-03 01:44
PROVIDERS: ADMIT Internal Medicine Geriatric Medicine; ATTEND Student in an Organized Health Care Education/Training Program
DX: G45.9 Transient cerebral ischemic attack, unspecified (principal); I69.351 Hemiplegia and hemiparesis following cerebral infarction affecting right dominant side; R26.81 Unsteadiness on feet; K21.9 Gastro-esophageal reflux disease without esophagitis; M79.7 Fibromyalgia; E03.9 Hypothyroidism, unspecified; I95.9 Hypotension, unspecified; Z85.850 Personal history of malignant neoplasm of thyroid; Z87.891 Personal history of nicotine dependence; Z90.49 Acquired absence of other specified parts of digestive tract; Z88.5 Allergy status to narcotic agent; Z88.8 Allergy status to other drugs, medicaments and biological substances
CPT/HCPCS: 36415; 70450; 70551; 80048; 80053; 80061; 80307; 81001; 82550; 82553; 83036; 84439; 84443; 84484; 85007; 85025; 85610; 85670; 85730; 93005; 93306; 93880; G0378; J3490; C8929; J1644; J2270; J2405